=== PATIENT | female | born 1955 | race African-American/Black ===

== ENCOUNTER 2017-02-14 07:19 | Inpatient (IN) | payer BC ==
--- NOTE | 2017-02-06 15:00 | HP ---
[facility] - Chief Complaint Chief Complaint: left knee pain - Past Medical History Allergies/Adverse Reactions: Allergies Allergy/AdvReac Type Severity Reaction Status Date / Time No Known Allergies Allergy Verified 01/12/16 10:04 Heme/Onc: Yes: Anemia Musculoskeletal: Yes: Other (Rh arthritis) Rheumatology: Yes: Rheumatoid Arthritis - Current Medications Current Medications: Home Medications Medication Instructions Recorded Ascorbic Acid [Vitamin C -] 500 mg PO BID #14 tablet 01/17/16 Aspirin [ASA -] 325 mg PO DAILY@0800 #0 tablet 01/17/16 Ceftriaxone [Rocephin -] 2 gm IVPB DAILY #0 vial 01/17/16 Ferrous Sulfate [Feosol] 325 mg PO DAILY #0 tablet 01/17/16 Lactobacillus Acidophilus [Bacid -] 1 each PO DAILY #30 capsule 01/17/16 Metronidazole [Flagyl -] 500 mg PO TID #0 tablet 01/17/16 Multivitamins [Multivit ([facility] 1 tab PO DAILY #0 tab 01/17/16 Formulary)] Pantoprazole Sodium [Protonix -] 40 mg PO DAILY #0 tablet.ec 01/17/16 Sennosides/Docusate Sodium 1 tablet PO BID #0 tablet 01/17/16 [Pericolace -] Satellite Physical Exam - Physical Examination General Appearance: Well Nourished, Well Developed, Alert & Oriented x3 ENT: Clear Lung: Normal air movement Heart: Regular rate & rhythm Extremities: Other (left knee- + swelling, + ttp, decr rom, nvi xrays show severe tricompartmental djd) Neurological: Intact, Alert, Oriented Satellite Impression/Plan - Impression/Plan Impression: left knee djd Operative Procedure: left ange tkr Date to be Performed: 02/14/17
[2017-02-14] MEDS ORDERED: TRANEXAMIC ACID 1000 MG/10 ML VIAL IVPUSH ONE (07:32)
[2017-02-14] MEDS ORDERED: GABAPENTIN 300 MG CAPSULE (FP) PO ONE (07:32)
[2017-02-14] MEDS ORDERED: CELECOXIB 200 MG CAPSULE PO ONE (07:32)
[2017-02-14] MEDS ORDERED: CEFAZOLIN 2 GM in DEXTROSE 5%-WATER - 50 ML IVPB ONE (07:32)
[2017-02-14] MEDS ORDERED: oxyCODONE HCL 10 MG SUSTAINED ACTING TABLET PO ONE (07:32)
[2017-02-14] MEDS ORDERED: DEXAMETHASONE SOD PHOSPHATE/PF 10 MG/ML SDV ONE (08:16)
[2017-02-14] MEDS ORDERED: SODIUM CHLORIDE 0.9% P/F 10 ML VIAL IJ ONE (08:17)
[2017-02-14] MEDS ORDERED: MIDAZOLAM HCL 2 MG/2 ML SINGLE DOSE VIAL ONE (08:17)
[2017-02-14] MEDS ORDERED: ROPIVACAINE HCL 0.5% 30ML VIAL ONE (08:17)
[2017-02-14] MEDS ORDERED: oxyCODONE HCL 10 MG SUSTAINED ACTING TABLET ONE (08:18)
[2017-02-14] MEDS ORDERED: GABAPENTIN 300 MG CAPSULE (FP) ONE (08:19)
[2017-02-14] MEDS ORDERED: CELECOXIB 200 MG CAPSULE ONE (08:19)
[2017-02-14] MEDS ORDERED: ceFAZolin SODIUM 1 GM VIAL ONE (08:35)
[2017-02-14] MEDS ORDERED: VANCOMYCIN 1,000 MG VIAL (RESTRICTED TO ID ONLY) ONE (08:35)
[2017-02-14 08:44] VITALS: BMI 28.5
[2017-02-14] MEDS ORDERED: LIDOCAINE 1% P/F 10 MG/ML VIAL ONE (09:45)
[2017-02-14] MEDS ORDERED: oxyCODONE HCL 5 MG TABLET PO PRN (10:23)
[2017-02-14] MEDS ORDERED: ROPIVACAINE 0.2% 400ML 400 ML ML NR ONE (10:23)
[2017-02-14] MEDS ORDERED: ONDANSETRON 4 MG/2 ML VIAL IVPUSH PRN (11:12)
[2017-02-14] MEDS ORDERED: PROMETHAZINE HCL 25 MG/1 ML VIAL IVPUSH PRN (11:15)
[2017-02-14] MEDS ORDERED: MAG HYDROX/AL HYDROX/SIMETH 30 ML UNIT-DOSE CUP PO PRN (11:52)
[2017-02-14] MEDS ORDERED: MAGNESIUM HYDROX 2400MG/30ML ORAL SUSPENSION 30 ML CUP PO PRN (11:52)
--- NOTE | 2017-02-14 11:54 | OP ---
Operative Note - Note: Operative Date: 02/14/17 (aníbal) Pre-Operative Diagnosis: left knee djd Operation: left tkr Post-Operative Diagnosis: Same as Pre-op Surgeon: Eugene Hurd Spinner Tender: Chuy Leyva) Anesthesia: Spinal, Local Specimens Removed: bone fragments Estimated Blood Loss (mls): 50 (tourniquet) Operative Report Dictated: Yes
[2017-02-14] MEDS ORDERED: LACTATED RINGERS SOLUTION 1,000 ML IV SCH (12:00)
[2017-02-14] MEDS ORDERED: ONDANSETRON 4 MG/2 ML VIAL IVPB PRN (12:14)
[2017-02-14] MEDS ORDERED: ACETAMINOPHEN 1000 MG/100 ML VIAL (NON FORMULARY) IVPB ONE (12:55)
[2017-02-14] MEDS: oxyCODONE HCL 5 MG TABLET PO PRN ×2 (15:13→20:02)
[2017-02-14] MEDS: CEFAZOLIN 2 GM/D5W 50 ML IVPB SCH (17:54)
--- NOTE | 2017-02-14 18:08 | SPEC ---
DATE OF SURGERY: 02/14/2017 OPERATION: Left total knee replacement. PREOPERATIVE DIAGNOSIS: Degenerative joint disease of the left knee. POSTOPERATIVE DIAGNOSIS: Degenerative joint disease of the left knee. SURGEON ATTENDING: Eugene Hurd M.D. RESIN PAINTER: Mia Leyva M.D. HOUSING ASSISTANT: Anca Vera ANESTHESIA: Regional and spinal. CLOSURE: A 5 femur, 5 tibia, 11 polyethylene, 35 patella. No. 1 Vicryl to fascia, 0 and 2-0 subcutaneous, 3-0 Monocryl subcuticular with skin glue to skin. ESTIMATED BLOOD LOSS: Negligible. TOTAL TOURNIQUET TIME: Approximately 70 minutes. COMPLICATIONS: None. CONDITION: To recovery room in stable condition. PROCEDURE: Patient was taken to the operating room. Spinal anesthesia and femoral block were administered by the anesthesiologist. IV Kefzol and TXA were administered prophylactically prior to the case. Well-padded pneumatic tourniquet was placed on the left proximal thigh. The left lower extremity was prepped and draped in the usual sterile fashion. A 12 to 15-cm midline longitudinal incision centered over the patella was incised. Hemostasis was achieved with Bovie cautery and sharp dissection was carried down to the level of the fascia. A medial parapatellar arthrotomy was then made leaving tissue on the patella for later closure. The patella was inverted and the knee was flexed up. Fat pad was excised. Subperiosteal dissection was done on the anterior medial proximal tibia until the knee was able to be brought forward. This was facilitated by taking the ACL and the anterior horn of the lateral meniscus. Using the external tibial alignment, a jig was then clamped to the tibia and malletted into place. A stylus was used to take 2 mm off the lower side. Pins were placed and alignment jig was removed. The alignment was confirmed by using a drop gino and again pinned with an X pin as well. The saw was used to osteotomize the proximal tibia. The bone and meniscal remnants were all removed. The cutting jib was removed, leaving the pins for now. The proximal femur was opened using a step drill just above the notch. An intramedullary alignment with 6 degrees of valgus was then malleted into place. Using anterior referencing jigs and 7 degrees of valgus and the appropriate 3 degrees of external rotation, the distal femur was cut in the anterior posterior distal chamber with box cuts. The femur was sized and the appropriate jig was used to cut the bone. The soft tissue was confirmed to be balanced in both full extension and flexion by using the gapper. A trial femoral reduction with appropriate femoral-sized component achieved good line to line fit. The remnants of the PCL and posterior menisci were already removed and any osteophytes posteriorly were debrided with an osteotome and a rongeur. The appropriate-sized tibial base plate with a 9 mm insert was placed into the knee and was allowed to find itself." It was then pinned into place and confirmation was confirmed to having appropriate alignment with a drop gino and a transverse pin in the femur. The knee was taken through a range of motion and found to have good stability throughout. The patella was then calipered for thickness and osteotomized down to the appropriate level. An appropriate lollypop was used to drill lug holes in the patella. Trial reduction with a medializing patella button was performed and the knee went through a full range of motion, full extension, full tracking with no undue tightness, good stability and excellent tracking of the patella. The trial components were removed. The keel was malleted into the tibial base plate. The knee was then post-antibiotic irrigated. Using modern generation techniques and antibiotics cement, the real components were then malleted into position and pressurized with the knee in extension with a trial polyethylene. The knee was thoroughly inspected to remove all excess cement and then post-antibiotic irrigated. The real polyethylene component was then clipped into place. Range of motion, stability, and tracking were described earlier. Medial parapatellar arthrotomy was then closed using No. 1 Vicryl interrupted suture. After closure, the knee was taken through a range of motion and found to have good stability of the repair and excellent tracking of the patella. Subcutaneous was closed with 0 and 2-0 and 3-0 Monocryl subcuticular for the skin, skin glue was placed on the knee. An Aquacel dressing was then applied, as well as a Cunningham dressing. Tourniquet was deflated. Total tourniquet time was approximately 70 minutes. There were no complications. At the end of the case another gram of TXA was administered as well. Patient was awakened from anesthesia, and transferred in stable condition. X-rays revealed excellent position of the components. MIA LEYVA M.D. USMAN/[id number]
[2017-02-14] MEDS: ACETAMINOPHEN 325 MG TABLET (FP) PO SCH (20:01)
[2017-02-14] MEDS: SENNOSIDES/DOCUSATE COMBO (SENNA PLUS) TABLET (UD) PO SCH (21:22)
[2017-02-14] MEDS: oxyCODONE HCL 10 MG SUSTAINED ACTING TABLET PO SCH (21:23)
[2017-02-14] MEDS: GABAPENTIN 300 MG CAPSULE (FP) PO SCH (21:23)
[2017-02-15] MEDS: CEFAZOLIN 2 GM/D5W 50 ML IVPB SCH (01:53)
[2017-02-15] MEDS: ACETAMINOPHEN 325 MG TABLET (FP) PO SCH ×4 (01:53→20:33)
[2017-02-15] MEDS: oxyCODONE HCL 5 MG TABLET PO PRN ×3 (06:48→19:30)
[2017-02-15 07:44] LABS: WHITE BLOOD COUNT 4.2 K/mm3 (4.0-10.0)
[2017-02-15 07:48] LABS: MCH 26.9 pg (25.7-33.7); MCHC 33.4 g/dl (32.0-36.0); MEAN CELL VOLUME 80.6 fl (80-96); MEAN PLT VOLUME 6.1 fl (7.5-11.1); PLATELET COUNT 312 K/MM3 (134-434); RDW 13.6 % (11.6-15.6)
[2017-02-15] MEDS: ASPIRIN 325 MG TABLET PO SCH (08:00)
[2017-02-15 08:21] LABS: CALCIUM 8.7 mg/dl (8.4-10.2); CREATININE 0.5 mg/dl (0.6-1.3)
--- NOTE | 2017-02-15 09:11 | PN ---
Progress Note (short form) - Note Progress Note: Ortho Pt seen and examined s/p left tkr pod #1 Selected Entries 02/15/17 05:51 Temperature 98.4 F Pulse Rate 89 Respiratory 18 Rate Blood Pressure 146/65 Laboratory Tests 02/15/17 07:38 WBC 4.2 Hgb 11.3 D Hct 33.7 D Plt Count 312 D [id number] c/d/i, calf soft, nt rom 0-60, nvi a/p PT dvt ppx pain control d/c to snf either tomorrow/friday
[2017-02-15] MEDS: GABAPENTIN 300 MG CAPSULE (FP) PO SCH ×2 (10:37→21:53)
[2017-02-15] MEDS: MULTIVITAMINS (DAILY MVI) TABLET (FP) PO SCH (10:38)
[2017-02-15] MEDS: SENNOSIDES/DOCUSATE COMBO (SENNA PLUS) TABLET (UD) PO SCH ×2 (10:38→21:53)
[2017-02-15] MEDS: PANTOPRAZOLE 40 MG TABLET (FP) PO SCH (10:38)
[2017-02-15] MEDS: LACTATED RINGERS SOLUTION 1,000 ML IV SCH (10:39)
[2017-02-15] MEDS: oxyCODONE HCL 10 MG SUSTAINED ACTING TABLET PO SCH ×2 (10:39→21:53)
[2017-02-16] MEDS: ACETAMINOPHEN 325 MG TABLET (FP) PO SCH ×4 (03:19→20:00)
[2017-02-16] MEDS: oxyCODONE HCL 5 MG TABLET PO PRN (05:25)
[2017-02-16 08:24] LABS: MCHC 32.2 g/dl (32.0-36.0); MEAN CELL VOLUME 80.9 fl (80-96); PLATELET COUNT 301 K/MM3 (134-434); WHITE BLOOD COUNT 5.5 K/mm3 (4.0-10.0)
--- NOTE | 2017-02-16 08:58 | PN ---
Progress Note (short form) - Note Progress Note: Ortho Pt seen and examined s/p left tkr pod #2 Selected Entries 02/16/17 06:00 Temperature 99.6 F Pulse Rate 111 H Respiratory 19 Rate Blood Pressure 121/69 Laboratory Tests 02/16/17 06:30 WBC 5.5 D Hgb 11.2 Hct 34.9 Plt Count 301 dressing some slight bloody drainage but no to borders, calf soft, nt rom 0-60, nvi a/p PT dvt ppx pain control d/c to snf either today/friday
[2017-02-16] MEDS: LACTATED RINGERS SOLUTION 1,000 ML IV SCH (09:54)
[2017-02-16] MEDS: MULTIVITAMINS (DAILY MVI) TABLET (FP) PO SCH (09:56)
[2017-02-16] MEDS: PANTOPRAZOLE 40 MG TABLET (FP) PO SCH (09:56)
[2017-02-16] MEDS: SENNOSIDES/DOCUSATE COMBO (SENNA PLUS) TABLET (UD) PO SCH ×2 (09:56→21:20)
[2017-02-16] MEDS: ASPIRIN 325 MG TABLET PO SCH (09:56)
[2017-02-16] MEDS: GABAPENTIN 300 MG CAPSULE (FP) PO SCH ×2 (09:57→21:20)
[2017-02-16] MEDS: oxyCODONE HCL 10 MG SUSTAINED ACTING TABLET PO SCH ×2 (09:57→21:20)
[2017-02-17] MEDS: ACETAMINOPHEN 325 MG TABLET (FP) PO SCH ×2 (02:00→08:07)
[2017-02-17 06:50] VITALS: PULSE 95
[2017-02-17] MEDS: ASPIRIN 325 MG TABLET PO SCH (08:07)
--- NOTE | 2017-02-17 08:29 | PN ---
Progress Note (short form) - Note Progress Note: Ortho Pt seen and examined s/p left tkr pod #3 Selected Entries 02/17/17 02/17/17 06:30 06:50 Temperature 98.0 F Pulse Rate 95 H Respiratory 19 Rate Blood Pressure 125/77 dressing some slight bloody drainage but no to borders, calf soft, nt rom 0-60, nvi a/p PT dvt ppx pain control d/c to snf today f/u in 10-14 days in the office
--- NOTE | 2017-02-17 08:30 | DS ---
Physical Examination Vital Signs: Vital Signs Temperature 98.0 F 02/17/17 06:30 Pulse Rate 95 H 02/17/17 06:50 Respiratory Rate 19 02/17/17 07:55 Blood Pressure 125/77 02/17/17 06:50 O2 Sat by Pulse Oximetry (%) 96 02/17/17 07:55 Labs: CBC, BMP 02/16/17 06:30 02/15/17 07:38 Discharge Summary Reason For Visit: OSTEOARTHRITIS Procedures: Principal: s/p left tkr Hospital Course: admitted for elective left tkr, uneventful post-op, stable for d/c Condition: Good - Instructions Diet, Activity, Other Instructions: Post-op Instructions-Total Knee Replacement Call the office for a follow-up appointment in 1 week - [phone] Aspirin 325mg daily for 6 weeks. Pain medication was sent into your pharmacy. Apply Graduated Compression Stockings (TEDs) to both lower extremities- remove daily for hygiene ONLY Apply Sequential Compression Device (SCDs) to both Lower extremities remove for PT and hygiene ONLY Apply cold packs to affected area for 15 minutes every 2 hours. Physical Therapist will come to your home for the first 5 days. You will be set up with outpatient PT at your first post-operative visit. Patient may ambulate as tolerated-encourage self care (at least every 2-3 hours while awake) with walker or cane Maintain Aquacel (waterproof) dressing to operative wound (will be removed by surgeon at first office visit) Shower with Aquacel dressing in place-if Aquacel integrity compromised, remove and apply dry sterile dressing and notify Orthopedist. DO NOT SHOWER unless Orthopedists approves without Aquacel dressing CONTACT THE OFFICE FOR ANY CHANGE IN YOUR CONDITION (for example-fever greater than 102 degrees,excessive bleeding from operative site, purulent drainage, severe swelling or pain) GO TO THE EMERGENCY ROOM IF THERE IS A MEDICAL EMERGENCY Knee Precautions: * Keep a rolled towel under affected heel while in bed or chair (to keep knee in extension) * Keep affected leg elevated except during mealtimes * DO NOT PLACE PILLOW UNDER AFFECTED KNEE * If you have any questions, please do not hesitate to call the office - [phone]. Referrals: Chuy Leyva MD [Staff Physician] - Disposition: RETIREMENT FACILITY - Home Medications Comprehensive Discharge Medication List: Ambulatory Orders Ibuprofen [Advil -] 200 mg PO ASDIR PRN 02/13/17 Aspirin [ASA -] 325 mg PO DAILY@0800 tablet 02/14/17 Oxycodone HCl/Acetaminophen [Percocet 5-325 mg Tablet -] 1 - 2 tab PO Q6H #50 tab MDD 8 02/14/17
[2017-02-17] MEDS: PANTOPRAZOLE 40 MG TABLET (FP) PO SCH (10:08)
[2017-02-17] MEDS: SENNOSIDES/DOCUSATE COMBO (SENNA PLUS) TABLET (UD) PO SCH ×2 (10:08→10:15)
[2017-02-17] MEDS: MULTIVITAMINS (DAILY MVI) TABLET (FP) PO SCH (10:08)
[2017-02-17] MEDS: GABAPENTIN 300 MG CAPSULE (FP) PO SCH (10:08)
[2017-02-17] MEDS: oxyCODONE HCL 10 MG SUSTAINED ACTING TABLET PO SCH (10:09)
[2017-02-17 10:17] VITALS: BP 123/69; TEMP 98.1
--- NOTE | 2017-02-18 11:16 | PATH ---
Surgical Pathology Report Patient Name: HUDSON NIX Med. Rec. #: [id number] /Age/Gender: 1955 (Age: 61) / F Account: [id number] Location: [facility] MED-SURG Taken: 02/14/2017 Received: 02/14/2017 Reported: 02/18/2017 Physicians: Chuy Leyva M.D. Specimen(s) Received LEFT KNEE BONES Clinical History Osteoarthritis Final Diagnosis BONE AND SOFT TISSUE, LEFT KNEE, REPLACEMENT: DEGENERATIVE JOINT DISEASE WITH PROMINENT SYNOVIAL HYPERPLASIA AND ASSOCIATED LYMPHOPLASMACYTIC AGGREGATES WITHIN SYNOVIUM. Comment: The findings are nonspecific, but can be seen with rheumatoid arthritis. Recommend correlation with clinical findings and followup as clinically indicated. Electronically Signed Lionel Chandler M.D. Gross Description Received in formalin labeled "left knee bones," is a 10.5 x 9.0 x 1.5 cm aggregate of multiple thomas-yellow, irregular portions of bone and soft tissue. No areas of eburnation are identified. The articular surfaces are thomas-yellow and focally granular. The underlying trabecular bone is yellow and hard. Cement Truck Driver sections are submitted in one cassette, following decalcification. /02/17/201702/17/2017
== END 2017-02-17 14:12 | DRG 470 ==
LOC: FM/S 07:19 → EDSTATUS 09:30 → FM/S 13:56
PROVIDERS: ADMIT Orthopaedic Surgery; ATTEND Orthopaedic Surgery
PROC: 0SRD0J9 Replacement of Left Knee Joint with Synthetic Substitute, Cemented, Open Approach (ICD-10-PCS; principal; 2017-02-14 10:35)
DX: M17.12 Unilateral primary osteoarthritis, left knee (principal); J44.9 Chronic obstructive pulmonary disease, unspecified; K21.9 Gastro-esophageal reflux disease without esophagitis
CPT/HCPCS: 36415; 73560-TC-LT; 80048; 85027; 88305-TC; 88311-TC; 94010; 94760; 97116-GP